=== PATIENT | male | born 1945 | race Caucasian/White ===

== ENCOUNTER 2021-09-18 15:26 | Emergency (ER) | payer OTHER, SELFPAY ==
--- NOTE | 2021-09-18 16:00 | DI.CT.S_ITS ---
PROCEDURE: CT HEAD/BRAIN WO CON INDICATIONS: fall TECHNIQUE: Noncontrast 4.5 mm thick angled axial sections acquired from the foramen magnum to the vertex, with coronal and sagittal reformats. For radiation dose reduction, the following was used: automated exposure control, adjustment of mA and/or kV according to patient size. COMPARISON: None. FINDINGS: Image quality: Excellent. CSF spaces: Basal cisterns are patent. No extra-axial fluid collections. The ventricles are symmetric in size and shape. Brain: No intracranial bleeds or masses. There is cerebral volume loss for age, with resultant ventricular and sulcal prominence. There are periventricular and deep white matter chronic small vessel ischemic changes. There is intracranial internal carotid artery atherosclerosis. Skull and face: Right periorbital hematoma and laceration can be seen. No associated regional fracture is seen. Calvarium and visualized facial bones appear intact, without suspicious lesions. Sinuses: Visualized sinuses and mastoids are clear. IMPRESSION: Left periorbital hematoma and laceration, without an associated fracture. No acute intracranial hemorrhage is seen. No acute intracranial process is seen. Dictated by: Emre Gamble M.D. on 09/18/2021 at 15:27 Approved by: Emre Gamble M.D. on 09/18/2021 at 15:28
[2021-09-18 16:01] VITALS: BP 201/90; PULSE 71; RESP 17; TEMP 36.6; O2SAT 96; BMI 25.0
[2021-09-18 17:47] VITALS: BP 165/83
[2021-09-18 17:48] VITALS: PULSE 74; O2SAT 96
--- NOTE | 2021-09-18 18:06 | ED_ITS ---
HPI - Head Injury General Chief complaint: Head Injury Stated complaint: Fall, Head Laceration Time Seen by Provider: 09/18/21 18:01 Source: patient Mode of arrival: Ambulatory History of Present Illness HPI Narrative: 76-year-old male nonsmoker without significant medical history presents with family in the chief complaint of a head injury resulting in a laceration on his forehead just prior to arrival. He states that he was doing some work at home and hit his head on a firm, thick piece of metal that caused a laceration. He had no loss of consciousness and denies nausea or vomiting. Blood thinners. He denies other injury and is otherwise well and free of complaint Related Data Home Medications Medication Instructions Recorded Confirmed amlodipine 5 mg tablet 5 mg PO DAILY 09/18/21 09/18/21 buspirone 10 mg tablet 10 mg PO BID 09/18/21 09/18/21 escitalopram oxalate 20 mg tablet 20 mg PO DAILY 09/18/21 09/18/21 (Lexapro) famotidine 20 mg tablet 20 mg PO DAILY 09/18/21 09/18/21 fluticasone propionate 50 1 spray INTRANASAL BID 09/18/21 09/18/21 mcg/actuation nasal spray,suspension lisinopril 20 1 tab PO DAILY 09/18/21 09/18/21 mg-hydrochlorothiazide 25 mg tablet Previous Rx's Medication Instructions Recorded sertraline 100 mg tablet 200 mg PO QDAY #60 07/27/11 Allergies Allergy/AdvReac Type Severity Reaction Status Date / Time Iodine and Iodide Containing Allergy Severe Anaphylaxis Verified 09/18/21 16:00 Produc Review of Systems Review of Systems Narrative: GENERAL: Denies chills, fatigue, malaise, fever, sweats. HEENT: Denies sinus pain, ear pain, sore throat, difficulty swallowing, dizziness. RESPIRATORY: Denies dyspnea, cough, wheezing, hemoptysis, sputum. CARDIOVASCULAR: Denies chest pain, palpitations, orthopnea, edema, GASTROINTESTINAL: Denies nausea, vomiting, abdominal pain, diarrhea, constipation, melena. : Denies dysuria, frequency, incontinence, hematuria, urinary retention. MUSCULOSKELETAL: denies weakness, joint pain, or bony pain SKIN: See HPI NEUROLOGIC: Denies weakness, headache, numbness, change in speech, confusion, seizures, incoordination. PSYCHIATRIC: No concerning psychosocial issues. 12 point review of systems is negative except for those stated above Patient History Social History Smoking Status: Never smoker Smoking Status: Never smoker alcohol intake frequency: other Substance Use Type: does not use Exam Narrative Exam Narrative: GENERAL: [76] year old patient appears stated age. Well-developed patient, in mild distress. GCS 15 HEAD: 2.5 cm deep laceration in the mid forehead, full-thickness without evidence of foreign body, minimal active bleeding. No other contusions or abrasions, no evidence of depressed skull fracture EYES: Pupils equal round and reactive. Extraocular motions intact. No scleral icterus. No injection or drainage. ENT: Nose without bleeding, purulent drainage. Throat without erythema, tonsillar hypertrophy or exudate. Airway patent. NECK: Trachea midline. Non tender CARDIOVASCULAR: Regular rate and rhythm without murmurs, gallops, or rubs. RESPIRATORY: Clear to auscultation. Breath sounds equal bilaterally. No wheezes, rales, or rhonchi. GASTROINTESTINAL: Abdomen soft, non-tender, nondistended. EXTREMITIES: No edema or joint tenderness. BACK: Nontender without deformity or crepitance. No flank tenderness. NEURO: AOx3. SKIN: No rash or erythema of visible areas Initial Vital Signs Initial Vital Signs: Vital Signs Temperature 98 F 09/18/21 16:01 Pulse Rate 71 09/18/21 16:01 Respiratory Rate 17 09/18/21 16:01 Blood Pressure 201/90 H 09/18/21 16:01 Pulse Oximetry 96 09/18/21 16:01 Procedures Laceration Repair Laceration 1: Site: face Size (cm): 2.5 Description: linear Depth: involves muscle layer Local Anesthetic: lidocaine 1% and with epi Amount of anesthesia used (mL): 4 Pre-repair: wound explored and cleansed with chlorhexadine Skin layer closed with: nylon Skin layer suture size: 6-0 Number of sutures: 3 Technique: simple, interrupted Subcutaneous layer closed with: vicryl Subcutaneous layer suture size: 5-0 Number of sutures: 3 Technique: simple, interrupted Course Orders Ordered: Discontinued Medications Diphtheria/Tetanus/Acell Pertussis (Tet,Diph,Pertuss(Acell),Vac/Pf 0.5 Ml Syringe) 0.5 ml IM .ONCE ONE Stop: 09/18/21 18:19 Last Admin: 09/18/21 18:37 Dose: 0.5 ml Documented by: DENIS Lidocaine/Epinephrine (Lidocaine 1% W/Epi) 1 ml SUBCUT NOW ONE Stop: 09/18/21 18:09 Last Admin: 09/18/21 18:40 Dose: 1 ml Documented by: DENIS Vital Signs Vital signs: Vital Signs - 8 hr 09/18/21 16:01 09/18/21 17:47 09/18/21 17:48 Temperature 98 F Pulse Rate 71 74 Respiratory Rate 17 Blood Pressure 201/90 H 165/83 H Pulse Oximetry 96 96 MDM - Head Injury Imaging Data CT scan - head: Radiologist's Impression: Close Head CT (Signed) Emre Gamble - 09/18/21 [place] [address] CT Scan Report Signed Patient: Timbo Kothari MR#: [id number] : 1945 Acct:[id number] Age/Sex: 76 / M Date of Service: 09/18/21 Loc: ED Accession Number: [id number] ?? Procedure: CT head/brain wo con Ordering Provider: Yandy Lowery MD PROCEDURE:? CT HEAD/BRAIN WO CON ? INDICATIONS:? fall ? TECHNIQUE:? Noncontrast 4.5 mm thick angled axial sections acquired from the foramen magnum to the vertex, with coronal and sagittal reformats.? For radiation dose reduction, the following was used:? automated exposure control, adjustment of mA and/or kV according to patient size.? ? COMPARISON:? None. ? FINDINGS:? Image quality:? Excellent.? ? CSF spaces:? Basal cisterns are patent.? No extra-axial fluid collections.? The ventricles are symmetric in size and shape.? ? Brain:? No intracranial bleeds or masses.? There is cerebral volume loss for age, with resultant ventricular and sulcal prominence.? There are periventricular and deep white matter chronic small vessel ischemic changes.? There is intracranial internal carotid artery atherosclerosis.? ? Skull and face:? Right periorbital hematoma and laceration can be seen.? No associated regional fracture is seen.? Calvarium and visualized facial bones appear intact, without suspicious lesions.? ? Sinuses:? Visualized sinuses and mastoids are clear.? ? ? IMPRESSION:? Left periorbital hematoma and laceration, without an associated fracture. ? No acute intracranial hemorrhage is seen.? ? No acute intracranial process is seen.? ? ? Dictated by: Emre Gamble M.D. on 09/18/2021 at 15:27 ? ? Approved by: Emre Gamble M.D. on 09/18/2021 at 15:28 ? Discharge Plan Departure Patient Disposition: Home Clinical Impression: Facial laceration Instructions: DI for Laceration Repair Activity Restrictions/Additional Instructions: *You have been diagnosed with [facial laceration. Your history and physical exam are reassuring, your CT scan showed no significant findings. We updated your tetanus *What to do: *Please continue to take your regular medications as directed. [ ] New medication prescriptions sent to your pharmacy: [ ] [ ] New medication written as a paper prescription [x] No new medications given * Please keep the wound clean and dry to the best of your ability. Please monitor for signs of infection such as redness to the skin or increasing pain. Have the sutures/anthony removed by your doctor in about 7 days. If you are unable to get into your doctor, we would be happy to remove the sutures/anthony in that same timeframe. *If you do not have a primary care provider please contact the [facility] Resource line at [phone]. They will ask some questions about your medical history and help get you set up with a doctor in the community. *Return to Emergency Department if you should have any new, worsening or concerning symptoms, such as [fever greater than 101 F, shaking chills, worsening pain, persistent vomiting or other bothersome symptoms] Prescriptions: No Action sertraline 100 MG tablet 200 mg PO QDAY Qty: 60 3RF amlodipine 5 mg Tablet 5 mg PO DAILY 0RF famotidine 20 mg Tablet 20 mg PO DAILY 0RF buspirone 10 mg Tablet 10 mg PO BID 0RF lisinopril-hydrochlorothiazide 20-25 mg Tablet 1 tab PO DAILY 0RF fluticasone propionate [Flonase] 50 mcg/actuation [place],Suspension 1 spray INTRANASAL BID 0RF Rx Instructions: administer into each nostril escitalopram oxalate [Lexapro] 20 mg Tablet 20 mg PO DAILY 0RF Referrals: Miscellaneous,Doctor, [Primary Care Provider] -
[2021-09-18] MEDS: TET,DIPH,PERTUSS(ACELL),VAC/PF 0.5 ML SYRINGE IM (18:37)
[2021-09-18] MEDS: LIDOCAINE 1% W/EPI 1 ML SUBCUT (18:40)
[2021-09-18 19:05] VITALS: BP 166/79; PULSE 76; RESP 18; O2SAT 97
== END 2021-09-18 19:05 | disposition home or self-care (01) ==
PROVIDERS: Emergency Provider Emergency Medicine
DX: S01.81XA Laceration without foreign body of other part of head, initial encounter (principal); W26.8XXA Contact with other sharp object(s), not elsewhere classified, initial encounter; Y93.89 Activity, other specified; Y92.009 Unspecified place in unspecified non-institutional (private) residence as the place of occurrence of the external cause; Z23 Encounter for immunization
CPT/HCPCS: 12051; 70450; 90471; 99284; 90715

== ENCOUNTER → 2024-12-10 13:14 | Outpatient (CLI) | payer OTHER, SELFPAY ==
--- NOTE | 2024-12-10 13:16 | DI.MRI.S_ITS ---
PROCEDURE: MR PELVIC PROSTATE PROTOCOL INDICATIONS: Elevated prostate specific antigen [PSA] TECHNIQUE: Coronal HASTE, axial T1 FSE with fat saturation, 3-plane nonbreath-hold T2 FSE. After the administration of contrast, dynamic axial, delayed axial and coronal VIBE or 2-D FLASH with fat saturation through the pelvis. Diffusion weighted imaging and ADC was performed. COMPARISON: None. FINDINGS: Image quality: Diffusion weighted and dynamic contrast enhanced images are diagnostic. Prostate: Gland size is 6.1 x 4.3 x 5.7 cm; ellipsoid gland volume is 78 mL. Anterior transitional zone and anterior fibromuscular stroma with clearly invasive lesion involving the right and left mid gland and apex, measuring 2.8 x 1.8 x 2.2 cm. DWI score 5. T2 score 5. DCE positive. PI-RADS 5. There is extracapsular disease, measuring at least 0.6 cm at the inferior anterior fibromuscular stroma. Hemorrhage is seen throughout the peripheral zone of the prostate. There are areas of hemorrhagic exclusion, most notably in the left mid gland posteromedial peripheral zone measuring 1.2 x 0.8 cm (4/11). T2 score 3. DWI score 3. DCE positive. PI-RADS 4. Right apex posterolateral peripheral zone lesion measures 1.3 x 0.8 cm (4/16). DWI score 3. T2 score 3. DCE positive. PI-RADS 4 Transitional zone heterogenous nodules are present, either well encapsulated or mostly encapsulated, compatible with PI-RADS 1 or 2 likely BPH nodules. Genitourinary system: Trabeculated bladder likely from chronic obstruction Bowel and peritoneum: Colonic diverticula. No pathologic ascites. Nodes and vessels: No aneurysmal vessel identified. No enlarged pelvic lymph nodes by size criteria. Soft tissues: Enhancement at the bilateral trochanteric bursa, probably bursitis. Bones: No aggressive appearing focal osseous enhancement. IMPRESSION: Clearly invasive mid gland and apex anterior transitional zone and anterior fibromuscular stroma lesion, involving both the left and right halves of the prostate. PI- RADS 5. There is extracapsular extension. Additional smaller PI-RADS 4 lesions in the bilateral peripheral zones. Seminal vesicles are clear. 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 Other findings above. Dictated by: Segundo Mcclelland M.D. on 12/11/2024 at 16:00 Approved by: Segundo Mcclelland M.D. on 12/11/2024 at 16:07
== END ==
LOC: MRI 13:15
PROVIDERS: Referring Provider Nurse Practitioner Family; Visit Provider Nurse Practitioner Family
DX: R93.89 Abnormal findings on diagnostic imaging of other specified body structures (principal); R97.20 Elevated prostate specific antigen [PSA]; N32.89 Other specified disorders of bladder
CPT/HCPCS: 72197; A9579